=== PATIENT | female | born 1975 | race Caucasian/White ===

== ENCOUNTER → 2016-06-26 | Outpatient (CLI) | payer BC, OTHER ==
--- NOTE | 2016-06-26 09:45 | US ---
CORRECTED ORDERING PHYSICIAN Transabdominal and Endovaginal Pelvic Ultrasound Clinical History: 41-year-old female with heavy menstrual periods for several years. The patient is , and her LMP was June 22, 2016. ICD 10 Diagnostic Code: N 93.9. TECHNIQUE: A curvilinear 5 MHz transducer was initially used to sonographically evaluate the pelvis, using a full urinary bladder as a window. To better assess the uterine architecture and the adnexal structures, endovaginal pelvic sonography was also performed. Color and spectral Doppler were used. Comparison: None available. Findings: Transabdominal Pelvic Sonography: The uterus is normal in size, shape, and position, measuring 10.0 x 5.5 x 4.3 cm. The visualized aspects of the urinary bladder are normal. The right and left ovaries are normal. Endovaginal Pelvic Sonography: The endometrium is homogeneous and measures 7.7 mm. There is no unusual hyperemia with color Doppler. The right ovary measures 2.3 x 2.1 x 2.1 cm. The left ovary measures 3.3 x 1.6 x 2.2 cm. There are no cystic or solid adnexal masses identified. Small physiologic anechoic follicles are seen bilaterally. Normal arterial blood flow is documented to both ovaries by Doppler ultrasound. The resistive index associated with the right ovary 0.44 , and with the left ovary 0.53. There is no free fluid in the pelvic cul-de- sac. There are some nabothian cysts with benign features at the level of the cervix. Impression: Normal pelvic ultrasound. MTDD
--- NOTE | 2016-06-29 18:07 | MA ---
CORRECTED ORDERING PHYSICIAN Screening Digital Mammogram With Tomosynthesis and iCAD Indication: Routine screening. Technique: Standard digital CC projections were obtained. Digital breast tomosynthesis was performed in the MLO projection with reconstruction at 1.0-mm slice thickness. Composite MLO views were reconstructed. This examination was processed by the iCAD computer-aided detection system. Comparison: July 2013 Breast density: Type D. Findings: CAD was reviewed. No suspicious microcalcifications, mass, or architectural distortion. Impression: Negative mammogram BI-RADS: 1 - Negative Recommendation: Routine screening is recommended in one year, as long as physical examination is benign in this patient with moderately dense breast parenchyma. [facility] will send a result letter to the patient. Negative mammography should not preclude additional workup of a clinically suspicious finding. The patient's information is entered into a reminder system with a target due date for her next mammogram. [facility]
== END ==
LOC: FIMAGING 07:59
PROVIDERS: ATTEND Radiology Diagnostic Radiology
DX: N92.0 Excessive and frequent menstruation with regular cycle (principal)
CPT/HCPCS: G0202

== ENCOUNTER → 2018-09-20 | Outpatient (CLI) | payer OTHER | LOC: FIMAGING 12:39 | PROVIDERS: ATTEND Hospitalist | DX: Z12.31 Encounter for screening mammogram for malignant neoplasm of breast (principal) ==